=== PATIENT | male | born 1960 | race Caucasian/White ===

== ENCOUNTER 2017-10-25 03:35 | Inpatient (IN) ==
[2017-10-25 04:36] LABS: Basophils % 0.6 % (0.0-0.8); Eosinophils # 0.1 10*3/uL (0.0-0.87); Eosinophils % 1.1 % (0.00-10.9); Hematocrit 45.4 VOL% (42.0-52.0); Immature Granulocytes % 0.3 %; Immature Granulocytes Absolute 0.02 #; Lymphocytes # 1.6 10*3/uL (1.4-4.0); Lymphocytes % 26.3 % (21.2-54.2); Mean Corpuscular Hemoglobin 28 PG (27-34); Mean Corpuscular Volume 85.8 FL (87-102); Mean Platelet Volume 10.3 FL (9.6-12.0); Monocytes # 0.4 10*3/uL (0.11-0.8); Monocytes % 5.7 % (1.7-12.7); Neutrophils # 4.1 10*3/uL (1.4-7.4); Platelet Count 299 T/CUMM (130-400); Red Blood Count 5.29 MC/CUMM (3.8-5.5); Red Cell Distribution Width 14.2 % (9.3-17.3); White Blood Count 6.2 T/CUMM (4-12)
[2017-10-25] MEDS ORDERED: MAGNESIUM SULF RIDER 2 GM in PREMIX 1 EACH IV PRN ×3 (04:58→08:47)
[2017-10-25] MEDS ORDERED: MAGNESIUM SULF RIDER 4 GM in PREMIX 1 EACH IV PRN (04:58)
[2017-10-25 05:03] LABS: Alanine Aminotransferase 24 U/L (16-61); Albumin 3.9 G/DL (3.4-5.0); Alkaline Phosphatase 135 U/L (45-117); Aspartate Amino Transferase 35 U/L (0-37); Bilirubin,Total < 0.39 MG/DL (0.2-1.0); Blood Urea Nitrogen 23 MG/DL (7-18); Calcium 9.8 MG/DL (8.5-10.1); Glucose 96 MG/DL (74-106); Osmolality,Calculated 278.7 MOS/KG (273-304); Potassium 4.3 MMOL/L (3.5-5.1); Sodium 138 MMOL/L (136-145); Total Protein 8.4 G/DL (6.4-8.3)
[2017-10-25] MEDS ORDERED: ASPIRIN 325 MG TABLET PO STA (05:15)
[2017-10-25] MEDS ORDERED: ENOXAPARIN 100 MG/ML SYRINGE SUBCUT ONE (07:59)
[2017-10-25] MEDS ORDERED: NICOTINE 21 MG/24 HR PATCH TRANSDERM PRN (08:12)
[2017-10-25] MEDS ORDERED: MORPHINE 2 MG/1 ML SYRINGE IV PRN (08:12)
[2017-10-25] MEDS ORDERED: DOCUSATE SODIUM 100 MG CAPSULE PO PRN (08:12)
[2017-10-25] MEDS ORDERED: BISACODYL 5 MG TABLET PO PRN (08:12)
[2017-10-25] MEDS ORDERED: POTASSIUM CHLORIDE RIDER 10 MEQ in PREMIX 1 EACH IV PRN ×3 (08:12→08:47)
[2017-10-25] MEDS ORDERED: ONDANSETRON 4 MG/2 ML VIAL IV PRN (08:12)
[2017-10-25] MEDS ORDERED: ACETAMINOPHEN 325 MG TABLET PO PRN (08:12)
[2017-10-25] MEDS ORDERED: ZALEPLON 5 MG CAPSULE PO PRN (08:12)
[2017-10-25] MEDS ORDERED: NITROGLYCERIN 2% OINT 1 INCH/GM PACK TOP STA (08:25)
[2017-10-25] MEDS ORDERED: diphenhydrAMINE CAP 25 MG CAPSULE PO ONE (08:27)
[2017-10-25] MEDS ORDERED: DIAZEPAM 5 MG TABLET PO ONE (08:27)
[2017-10-25 08:28] LABS: Risk Ratio 9.54; VLDL CHOLESTEROL 16.6 MG/DL
[2017-10-25] MEDS ORDERED: NITROGLYCERIN 2% OINT 1 INCH/GM PACK TOP ONE (08:29)
[2017-10-25] MEDS ORDERED: MIDAZOLAM 2 MG/2 ML VIAL ONE (08:40)
[2017-10-25] MEDS ORDERED: HYDROmorphone 2 MG/1 ML VIAL ONE (08:40)
[2017-10-25] MEDS ORDERED: NITROGLYCERIN DRIP 50 MG/250 ML BOTTLE IV ONE (08:40)
[2017-10-25] MEDS ORDERED: LIDOCAINE 1% 20 ML VIAL ONE (08:40)
[2017-10-25] MEDS ORDERED: VERAPAMIL 5 MG/2 ML VIAL ONE (08:40)
[2017-10-25] MEDS ORDERED: ROSUVASTATIN 20 MG TABLET PO SCH (09:00)
[2017-10-25] MEDS ORDERED: TICAGRELOR 90 MG TABLET ONE (09:22)
[2017-10-25] MEDS ORDERED: ASPIRIN 325 MG TABLET ONE (09:22)
[2017-10-25] MEDS ORDERED: ENOXAPARIN 30 MG/0.3 ML SYRINGE ONE (10:08)
[2017-10-25] MEDS ORDERED: EPTIFIBATIDE 20,000 MCG/10 ML VIAL ONE (10:12)
[2017-10-25] MEDS ORDERED: TIROFIBAN 5,000 MCG/100 ML PREMIX IV ONE (10:12)
[2017-10-25] MEDS ORDERED: NITROGLYCERIN SL 0.4 MG TABLET SL PRN (10:31)
[2017-10-25 12:09] LABS: CKMB % 7.5 %
[2017-10-25 12:11] LABS: Troponin I Only 4.31 NG/ML (0.00-0.045)
[2017-10-25] MEDS ORDERED: NITROGLYCERIN DRIP 50 MG/250 ML BOTTLE IV SCH (14:30)
[2017-10-25] MEDS: PANTOPRAZOLE 40 MG TABLET PO SCH (15:49)
[2017-10-25] MEDS: CARVEDILOL 3.125 MG TABLET PO SCH ×2 (15:50→21:36)
[2017-10-25] MEDS: SODIUM CHLORIDE 0.9% 1,000 ML IV SCH (15:50)
[2017-10-25] MEDS ORDERED: diphenhydrAMINE CAP 25 MG CAPSULE PO PRN (18:14)
[2017-10-25] MEDS ORDERED: MAGNESIUM HYDROXIDE SUSP 30 ML UDCUP PO PRN (18:15)
[2017-10-25] MEDS ORDERED: SIMETHICONE CHEW 80 MG TABLET PO PRN (18:15)
[2017-10-25] MEDS: TICAGRELOR 90 MG TABLET PO SCH (21:36)
[2017-10-25] MEDS: ROSUVASTATIN 20 MG TABLET PO SCH (21:36)
[2017-10-26] MEDS: SODIUM CHLORIDE 0.9% 1,000 ML IV SCH ×2 (00:30→08:43)
[2017-10-26 05:41] LABS: Basophils % 0.4 % (0.0-0.8); Eosinophils # 0.2 10*3/uL (0.0-0.87); Hematocrit 39.6 VOL% (42.0-52.0); Immature Granulocytes % 0.5 %; Immature Granulocytes Absolute 0.04 #; Lymphocytes # 2.4 10*3/uL (1.4-4.0); Lymphocytes % 28.7 % (21.2-54.2); Mean Corpuscular HGB Conc 32.6 GM/DL (32-36); Mean Corpuscular Hemoglobin 28 PG (27-34); Mean Corpuscular Volume 86.7 FL (87-102); Mean Platelet Volume 10.7 FL (9.6-12.0); Monocytes # 0.6 10*3/uL (0.11-0.8); Monocytes % 7.6 % (1.7-12.7); Neutrophils # 5.1 10*3/uL (1.4-7.4); Neutrophils % 60.8 % (38.7-73.9); Platelet Count 262 T/CUMM (130-400); Red Blood Count 4.57 MC/CUMM (3.8-5.5); Red Cell Distribution Width 14.4 % (9.3-17.3)
[2017-10-26 05:58] LABS: White Blood Count 8.4 T/CUMM (4-12)
[2017-10-26 05:59] LABS: Hemoglobin 12.9 GM/DL (14.0-18.0)
[2017-10-26 06:10] LABS: Calcium 8.2 MG/DL (8.5-10.1); Magnesium 2.2 MG/DL (1.8-2.4); Osmolality,Calculated 276.7 MOS/KG (273-304); Potassium 4.4 MMOL/L (3.5-5.1)
[2017-10-26 06:15] LABS: CKMB % 5.5 %
[2017-10-26 06:17] LABS: Troponin I Only 4.74 NG/ML (0.00-0.045)
[2017-10-26 06:20] LABS: Calcium 8.2 MG/DL (8.5-10.1); Magnesium 2.3 MG/DL (1.8-2.4); Osmolality,Calculated 279.5 MOS/KG (273-304); Potassium 4.4 MMOL/L (3.5-5.1); Thyroid Stimulating Hormone 2.29 uIU/ml (0.358-3.74)
[2017-10-26] MEDS: TICAGRELOR 90 MG TABLET PO SCH ×2 (08:49→20:03)
[2017-10-26] MEDS: ASPIRIN EC 81 MG TABLET PO SCH (08:49)
[2017-10-26] MEDS: CARVEDILOL 3.125 MG TABLET PO SCH ×2 (08:49→20:03)
[2017-10-26] MEDS: PANTOPRAZOLE 40 MG TABLET PO SCH (08:50)
[2017-10-26] MEDS ORDERED: LISINOPRIL 2.5 MG TABLET PO SCH ×2 (09:00→10:00)
[2017-10-26] MEDS ORDERED: LISINOPRIL 2.5 MG TABLET PO ONE (10:15)
[2017-10-26] MEDS: ROSUVASTATIN 20 MG TABLET PO SCH (20:03)
[2017-10-26] MEDS ORDERED: ENOXAPARIN 40 MG/0.4 ML SYRINGE SUBCUT SCH (21:00)
[2017-10-27] MEDS ORDERED: LISINOPRIL 10 MG TABLET PO SCH (09:00)
[2017-10-27] MEDS ORDERED: NICOTINE 14 MG/24 HR PATCH TRANSDERM SCH (09:00)
[2017-10-27] MEDS ORDERED: LISINOPRIL 5 MG TABLET PO SCH (09:00)
[2017-10-27] MEDS: ASPIRIN EC 81 MG TABLET PO SCH (09:08)
[2017-10-27] MEDS: CARVEDILOL 3.125 MG TABLET PO SCH (09:08)
[2017-10-27] MEDS: PANTOPRAZOLE 40 MG TABLET PO SCH (09:08)
[2017-10-27] MEDS: TICAGRELOR 90 MG TABLET PO SCH (09:08)
[2017-10-27 09:43] VITALS: BP 158/102
[2017-10-27] MEDS ORDERED: CLOPIDOGREL 300 MG TABLET PO ONE (09:58)
== END 2017-10-27 11:11 | disposition home or self-care (01) | DRG 247 ==
LOC: EDBD → EDSEX → EDUNIT# → N.ED 03:35 → N.CC 08:38 → N.CL 08:39 → N.CC 09:59
PROVIDERS: ADMIT Internal Medicine Cardiovascular Disease; ATTEND Internal Medicine Cardiovascular Disease
PROC: CLCCHCL (ICD-10-PCS; 2017-10-25 09:15)

== ENCOUNTER 2018-10-08 12:30 | Inpatient (IN) ==
[2018-10-08 13:24] LABS: Basophils # 0.1 10*3/uL (0.0-0.2); Eosinophils % 0.2 % (0.00-10.9); Immature Granulocytes % 4.4 %; Immature Granulocytes Absolute 0.37 #; Lymphocytes # 3.6 10*3/uL (1.4-4.0); Lymphocytes % 42.3 % (21.2-54.2); Mean Corpuscular HGB Conc 33.8 GM/DL (32-36); Mean Corpuscular Hemoglobin 33 PG (27-34); Mean Corpuscular Volume 96.3 FL (87-102); Mean Platelet Volume 12.2 FL (9.6-12.0); Monocytes # 2.6 10*3/uL (0.11-0.8); Monocytes % 30.6 % (1.7-12.7); NRBC # 1.34 10*3/uL; Neutrophils # 1.8 10*3/uL (1.4-7.4); Neutrophils % 21.5 % (38.7-73.9); Platelet Count 142 T/CUMM (130-400); Red Blood Count 1.63 MC/CUMM (3.8-5.5); Red Cell Distribution Width 15.8 % (9.3-17.3); White Blood Count 8.4 T/CUMM (4-12)
[2018-10-08 13:33] LABS: PT Patient Result 10.9 SECS
[2018-10-08 13:36] LABS: Hematocrit 15.7 VOL% (42.0-52.0); Hemoglobin 5.3 GM/DL (14.0-18.0)
[2018-10-08] MEDS ORDERED: SODIUM CHLORIDE 0.9% 1,000 ML IV PRN (13:37)
[2018-10-08 13:46] LABS: Albumin 3.5 G/DL (3.4-5.0); Calcium 8.3 MG/DL (8.5-10.1); Osmolality,Calculated 282.4 MOS/KG (273-304); Potassium 3.6 MMOL/L (3.5-5.1); Total Protein 7.5 G/DL (6.4-8.3)
[2018-10-08 14:02] LABS: % Iron Saturation 90.2 % (18-50)
[2018-10-08 14:16] LABS: Eosinophils 2 % (0-10); Lymphocytes 50 % (20-55); Nucleated Red Blood Cells 31 (0-5); Segmented Neutrophils 32 % (50-85); Total Cells Counted 100
[2018-10-08 14:20] LABS: Anisocytosis 1+; Giant Platelets 1+; Platelet Estimate Adequate; Polychromasia 1+
[2018-10-08 14:21] LABS: Microcytosis 1+; Tear Drop Cells Few
[2018-10-08 14:22] LABS: Macrocytosis 1+
[2018-10-08 14:24] LABS: Hypochromasia 2+; Schistocytes Few
[2018-10-08 14:25] LABS: Atypical Lymphocytes Few
[2018-10-08] MEDS ORDERED: ONDANSETRON 4 MG/2 ML VIAL IV PRN (14:35)
[2018-10-08] MEDS ORDERED: NICOTINE 21 MG/24 HR PATCH TRANSDERM PRN (14:35)
[2018-10-08] MEDS ORDERED: INFLUENZA VIRUS VACCINE 0.5 ML SYRINGE IM ONE (16:43)
[2018-10-08] MEDS: LISINOPRIL 10 MG TABLET PO SCH (17:58)
[2018-10-08] MEDS: CARVEDILOL 6.25 MG TABLET PO SCH (20:54)
[2018-10-08] MEDS: PANTOPRAZOLE 40 MG TABLET PO SCH (20:54)
[2018-10-08] MEDS: SODIUM CHLORIDE 0.9% 1,000 ML IV SCH (20:57)
[2018-10-09] MEDS: SODIUM CHLORIDE 0.9% 1,000 ML IV SCH ×4 (07:00→22:45)
[2018-10-09 07:36] LABS: Basophils % 0.4 % (0.0-0.8); Hematocrit 21.4 VOL% (42.0-52.0); Immature Granulocytes % 4.6 %; Immature Granulocytes Absolute 0.32 #; Lymphocytes # 3.1 10*3/uL (1.4-4.0); Lymphocytes % 44.6 % (21.2-54.2); Mean Corpuscular HGB Conc 33.2 GM/DL (32-36); Mean Corpuscular Hemoglobin 30 PG (27-34); Mean Corpuscular Volume 91.5 FL (87-102); Monocytes # 2.2 10*3/uL (0.11-0.8); Monocytes % 31.1 % (1.7-12.7); NRBC # 1.13 10*3/uL; Neutrophils # 1.4 10*3/uL (1.4-7.4); Neutrophils % 19.3 % (38.7-73.9); Platelet Count 115 T/CUMM (130-400); Red Cell Distribution Width 16.2 % (9.3-17.3)
[2018-10-09 07:46] LABS: Hemoglobin 7.1 GM/DL (14.0-18.0); Red Blood Count 2.34 MC/CUMM (3.8-5.5)
[2018-10-09 08:02] LABS: Calcium 8.4 MG/DL (8.5-10.1); Osmolality,Calculated 280.5 MOS/KG (273-304); Potassium 4.5 MMOL/L (3.5-5.1)
[2018-10-09 08:08] LABS: Anisocytosis 2+; Band Neutrophils 4 % (0-10); Lymphocytes 63 % (20-55); Metamyelocytes 1 %; Nucleated Red Blood Cells 25 (0-5); Platelet Estimate Adequate; Polychromasia Slight; Segmented Neutrophils 20 % (50-85); Smudge Cells Few; Total Cells Counted 100
[2018-10-09] MEDS ORDERED: SODIUM CHLORIDE 0.9% 1,000 ML IV PRN (09:21)
[2018-10-09] MEDS: CARVEDILOL 6.25 MG TABLET PO SCH ×2 (10:56→20:32)
[2018-10-09] MEDS: PANTOPRAZOLE 40 MG TABLET PO SCH (10:56)
[2018-10-09] MEDS: LISINOPRIL 10 MG TABLET PO SCH (10:56)
[2018-10-09 11:06] LABS: Folate > 24.0 NG/ML (5.4-24.0); Vitamin B12 1462 PG/ML (211-911)
[2018-10-09 11:53] LABS: Ferritin 389.4 ng/ml (26-388)
[2018-10-09 12:47] LABS: Immunoglobulin A 386 MG/DL (70-400); Immunoglobulin G 1520 MG/DL (700-1600); Immunoglobulin M 100 MG/DL (40-230)
[2018-10-09 13:14] LABS: Haptoglobin < 8.0 MG/DL (30-200)
[2018-10-09 19:39] LABS: Hematocrit 26.3 VOL% (42.0-52.0)
[2018-10-09 19:41] LABS: Hemoglobin 8.8 GM/DL (14.0-18.0)
[2018-10-09 19:45] LABS: Apearance,Urine CLEAR (Clear); Bilirubin,Urine Negative (Negative); Blood, Urine Negative (Negative); Glucose,Urine (UA) Negative (Negative); Ketones,Urine Negative (Negative); Mucus,Urine Occasional /LPF (Occasional); Nitrite,Urine Negative (Negative); Protein,Urine Negative; Urine Color Yellow (Yellow); Urine Specific Gravity 1.015 (1.001-1.035); Urine Urobilinogen < 2.0 EU/DL (0.2-1.0); WBC,Urine 1 /HPF (0-6)
[2018-10-09] MEDS: ACETAMINOPHEN 325 MG TABLET PO PRN (22:48)
[2018-10-10] MEDS: SODIUM CHLORIDE 0.9% 1,000 ML IV SCH ×2 (06:50→17:14)
[2018-10-10 06:55] LABS: Basophils % 0.3 % (0.0-0.8); Eosinophils % 0.1 % (0.00-10.9); Hematocrit 24.6 VOL% (42.0-52.0); Hemoglobin 8.2 GM/DL (14.0-18.0); Immature Granulocytes % 4.6 %; Immature Granulocytes Absolute 0.31 #; Lymphocytes # 3.3 10*3/uL (1.4-4.0); Lymphocytes % 48.5 % (21.2-54.2); Mean Corpuscular HGB Conc 33.3 GM/DL (32-36); Mean Corpuscular Hemoglobin 30 PG (27-34); Mean Corpuscular Volume 89.1 FL (87-102); Monocytes # 1.8 10*3/uL (0.11-0.8); Monocytes % 26.9 % (1.7-12.7); NRBC # 0.77 10*3/uL; Neutrophils # 1.3 10*3/uL (1.4-7.4); Neutrophils % 19.6 % (38.7-73.9); Platelet Count 111 T/CUMM (130-400); Red Blood Count 2.76 MC/CUMM (3.8-5.5); Red Cell Distribution Width 17.2 % (9.3-17.3); White Blood Count 6.8 T/CUMM (4-12)
[2018-10-10 07:10] LABS: Calcium 8.1 MG/DL (8.5-10.1); Osmolality,Calculated 280.4 MOS/KG (273-304); Potassium 4.1 MMOL/L (3.5-5.1)
[2018-10-10 07:16] LABS: Band Neutrophils 1 % (0-10); Hypochromasia 1+; Lymphocytes 59 % (20-55); Nucleated Red Blood Cells 6 (0-5); Ovalocytes Slight; Platelet Estimate Decreased; Segmented Neutrophils 20 % (50-85); Total Cells Counted 100
[2018-10-10 07:18] LABS: Atypical Lymphocytes Few; Microcytosis Slight
[2018-10-10 08:05] LABS: Total Protein (Chem) 7.5 G/DL (6.4-8.3)
[2018-10-10 08:05] LABS: Immunoglobulin A (Chem) 386 MG/DL (70-400); Immunoglobulin G (Chem) 1520 MG/DL (700-1600); Immunoglobulin M (Chem) 100 MG/DL (40-230)
[2018-10-10] MEDS: PANTOPRAZOLE 40 MG TABLET PO SCH (09:30)
[2018-10-10] MEDS: FOLIC ACID 0.4 MG TABLET PO SCH (09:30)
[2018-10-10] MEDS: CARVEDILOL 6.25 MG TABLET PO SCH ×2 (09:30→20:34)
[2018-10-10] MEDS: LISINOPRIL 10 MG TABLET PO SCH (09:30)
[2018-10-10] MEDS ORDERED: PROPOFOL 200 MG/20 ML VIAL IV ONE (10:00)
[2018-10-10] MEDS ORDERED: LIDOCAINE 2% 5 ML VIAL ONE (10:00)
[2018-10-10 10:28] LABS: Albumin (SPE) 4.1 G/DL (3.2-5.3); Albumin (SPE) Rel % 55.9 %; Alpha 1 (SPE) 0.3 G/DL (0.1-0.4); Alpha 1 (SPE) Rel % 3.3 %; Alpha 2 (SPE) 0.5 G/DL (0.4-1.0); Alpha 2 (SPE) Rel % 6.3 %; Beta (SPE) 0.9 G/DL (0.5-1.1); Beta (SPE) Rel % 12.1 %; Gamma (SPE) 1.7 G/DL (0.7-1.7); Gamma (SPE) Rel % 22.4 %
[2018-10-10] MEDS: predniSONE 20 MG TABLET PO SCH (10:30)
[2018-10-10] MEDS: amLODIPine 2.5 MG TABLET PO SCH (17:14)
[2018-10-10] MEDS: ACETAMINOPHEN 325 MG TABLET PO PRN (20:36)
[2018-10-10] MEDS ORDERED: ROSUVASTATIN 20 MG TABLET PO SCH (21:00)
[2018-10-11 04:36] LABS: Basophils % 0.4 % (0.0-0.8); Eosinophils # 0.1 10*3/uL (0.0-0.87); Eosinophils % 0.9 % (0.00-10.9); Hematocrit 23.3 VOL% (42.0-52.0); Hemoglobin 7.8 GM/DL (14.0-18.0); Immature Granulocytes % 4.6 %; Immature Granulocytes Absolute 0.26 #; Lymphocytes % 53.4 % (21.2-54.2); Mean Corpuscular HGB Conc 33.5 GM/DL (32-36); Mean Corpuscular Hemoglobin 30 PG (27-34); Mean Platelet Volume 12.3 FL (9.6-12.0); Monocytes # 1.3 10*3/uL (0.11-0.8); Monocytes % 22.1 % (1.7-12.7); NRBC # 0.45 10*3/uL; Neutrophils # 1.1 10*3/uL (1.4-7.4); Neutrophils % 18.6 % (38.7-73.9); Red Blood Count 2.59 MC/CUMM (3.8-5.5); Red Cell Distribution Width 16.6 % (9.3-17.3); White Blood Count 5.7 T/CUMM (4-12)
[2018-10-11 04:46] LABS: Platelet Count 95 T/CUMM (130-400)
[2018-10-11 04:55] LABS: Calcium 7.9 MG/DL (8.5-10.1); Osmolality,Calculated 284.3 MOS/KG (273-304); Potassium 3.8 MMOL/L (3.5-5.1)
[2018-10-11 05:13] LABS: Atypical Lymphocytes Few; Band Neutrophils 3 % (0-10); Hypochromasia 1+; Lymphocytes 51 % (20-55); Microcytosis Slight; Myelocytes 1 %; Nucleated Red Blood Cells 6 (0-5); Platelet Estimate Decreased; Segmented Neutrophils 28 % (50-85); Total Cells Counted 100
[2018-10-11] MEDS: SODIUM CHLORIDE 0.9% 1,000 ML IV SCH ×2 (06:35→08:45)
[2018-10-11] MEDS: LISINOPRIL 10 MG TABLET PO SCH (08:44)
[2018-10-11] MEDS: predniSONE 20 MG TABLET PO SCH (08:45)
[2018-10-11] MEDS: amLODIPine 2.5 MG TABLET PO SCH (08:45)
[2018-10-11] MEDS: CARVEDILOL 6.25 MG TABLET PO SCH (08:45)
[2018-10-11] MEDS: FOLIC ACID 0.4 MG TABLET PO SCH (08:45)
[2018-10-11] MEDS: PANTOPRAZOLE 40 MG TABLET PO SCH (08:45)
[2018-10-11 11:58] VITALS: BP 135/73
== END 2018-10-11 13:19 | disposition home or self-care (01) | DRG 810 ==
LOC: N.ED 12:30 → N.EDINP 12:30 → SUATTDRO 14:35 → N.5E 15:19
PROVIDERS: ADMIT Family Medicine; ATTEND Hospitalist

== ENCOUNTER 2019-05-02 08:22 | Inpatient (IN) ==
[2019-05-02] MEDS ORDERED: MEROPENEM 1,000 MG in SODIUM CHLORIDE 0.9% 100 ML IV STA (09:10)
[2019-05-02] MEDS ORDERED: SODIUM CHLORIDE 0.9% 2,000 ML IV STA (09:10)
[2019-05-02] MEDS ORDERED: ACETAMINOPHEN 500 MG TABLET PO STA (09:10)
[2019-05-02] MEDS ORDERED: ALBUTEROL/IPRATROPIUM 3 ML NEB RESP TX STA (09:27)
[2019-05-02] MEDS ORDERED: KETOROLAC 30 MG/1 ML VIAL IV STA (09:27)
[2019-05-02 09:37] LABS: Alanine Aminotransferase 25 U/L (16-61); Albumin 3.2 G/DL (3.4-5.0); Alkaline Phosphatase 164 U/L (45-117); Amylase 39 U/L (25-115); Aspartate Amino Transferase 18 U/L (0-37); Blood Urea Nitrogen 18 MG/DL (7-18); Calcium 9.1 MG/DL (8.5-10.1); Glucose 97 MG/DL (74-106); Osmolality,Calculated 267.4 MOS/KG (273-304); Total Protein 7.9 G/DL (6.4-8.3); Troponin I < 0.015 NG/ML (0.00-0.045)
[2019-05-02 09:41] LABS: PT Patient Result 10.7 SECS (9.6-12.2)
[2019-05-02 10:04] LABS: Hematocrit 21.3 VOL% (42.0-52.0); Hemoglobin 7.1 GM/DL (14.0-18.0); Lymphocytes # 0.1 10*3/uL (1.4-4.0); Mean Corpuscular HGB Conc 33.3 GM/DL (32-36); Mean Corpuscular Volume 94.7 FL (87-102); Mean Platelet Volume 10.7 FL (9.6-12.0); Red Blood Count 2.25 MC/CUMM (3.8-5.5); Red Cell Distribution Width 14.3 % (9.3-17.3)
[2019-05-02 10:09] LABS: Platelet Count 11 T/CUMM (130-400); White Blood Count 0.1 T/CUMM (4-12)
[2019-05-02 10:25] LABS: Atypical Lymphocytes Few; Hypochromasia 1+; Lymphocytes 80 % (20-55); Microcytosis Slight; Platelet Estimate Decreased; Total Cells Counted 100
[2019-05-02 11:14] LABS: Sedimentation Rate-Westergren 120 MM/HR (0-20)
[2019-05-02] MEDS ORDERED: PROMETHAZINE 25 MG/1 ML VIAL IM PRN (12:36)
[2019-05-02] MEDS ORDERED: FILGRASTIM-SNDZ 300 MCG/0.5 ML SYRINGE SUBCUT ONE (12:43)
[2019-05-02] MEDS ORDERED: SODIUM CHLORIDE 0.9% 1,000 ML IV PRN (12:44)
[2019-05-02] MEDS ORDERED: VANCOMYCIN INJ 1,250 MG in SODIUM CHLORIDE 0.9% 250 ML IV SCH (13:00)
[2019-05-02] MEDS: PIPERACILLIN/TAZOBACTAM 3,375 MG in SODIUM CHLORIDE 0.9% 100 ML IV SCH ×2 (13:21→20:39)
[2019-05-02] MEDS: SODIUM CHLORIDE 0.9% 1,000 ML IV SCH (13:21)
[2019-05-02] MEDS ORDERED: VANCOMYCIN INJ 1,750 MG in SODIUM CHLORIDE 0.9% 500 ML IV ONE (14:00)
[2019-05-02] MEDS: ONDANSETRON 4 MG/2 ML VIAL IV PRN (14:30)
[2019-05-02] MEDS: ACETAMINOPHEN 325 MG TABLET PO PRN (18:12)
[2019-05-02] MEDS: DOCUSATE SODIUM 100 MG CAPSULE PO SCH (20:48)
[2019-05-02] MEDS ORDERED: METHOCARBAMOL 500 MG TABLET PO PRN (21:07)
[2019-05-02] MEDS: oxyCODONE/ACETAMINOPHEN 5-325 MG TABLET PO PRN (21:49)
[2019-05-03] MEDS: VANCOMYCIN INJ 1,500 MG in SODIUM CHLORIDE 0.9% 500 ML IV SCH ×2 (03:26→15:13)
[2019-05-03] MEDS: ALBUTEROL/IPRATROPIUM 3 ML NEB RESP TX SCH ×6 (04:55→22:46)
[2019-05-03] MEDS: oxyCODONE/ACETAMINOPHEN 5-325 MG TABLET PO PRN ×2 (05:22→18:19)
[2019-05-03] MEDS: PIPERACILLIN/TAZOBACTAM 3,375 MG in SODIUM CHLORIDE 0.9% 100 ML IV SCH (05:31)
[2019-05-03 06:10] LABS: Hematocrit 23.8 VOL% (42.0-52.0); Lymphocytes # 0.1 10*3/uL (1.4-4.0); Mean Corpuscular HGB Conc 33.6 GM/DL (32-36); Mean Platelet Volume 11.3 FL (9.6-12.0); Red Blood Count 2.56 MC/CUMM (3.8-5.5); Red Cell Distribution Width 14.8 % (9.3-17.3)
[2019-05-03 06:19] LABS: White Blood Count 0.1 T/CUMM (4-12)
[2019-05-03 06:20] LABS: Platelet Count 30 T/CUMM (130-400)
[2019-05-03 06:41] LABS: Hypochromasia 1+; Lymphocytes 67 % (20-55); Microcytosis 1+; Platelet Estimate Decreased; Total Cells Counted 100
[2019-05-03 07:07] LABS: Albumin 2.5 G/DL (3.4-5.0); Bilirubin,Total 3.1 MG/DL (0.2-1.0); Calcium 8.2 MG/DL (8.5-10.1); Risk Ratio 5.68; Total Protein 6.7 G/DL (6.4-8.3); VLDL CHOLESTEROL 18.8 MG/DL
[2019-05-03] MEDS ORDERED: BUTALBITAL/ACETAMIN/CAFFEINE 50-325-40 MG TABLET PO PRN (08:45)
[2019-05-03] MEDS ORDERED: cefTRIAXone 1,000 MG in SODIUM CHLORIDE 0.9% 100 ML IV SCH (09:00)
[2019-05-03] MEDS ORDERED: cefTRIAXone 1,000 MG VIAL IM SCH (09:00)
[2019-05-03] MEDS ORDERED: METHOCARBAMOL 500 MG TABLET PO PRN (09:01)
[2019-05-03] MEDS ORDERED: PANTOPRAZOLE 40 MG TABLET PO SCH ×2 (10:00→10:07)
[2019-05-03] MEDS: DOCUSATE SODIUM 100 MG CAPSULE PO SCH ×2 (10:05→23:27)
[2019-05-03] MEDS ORDERED: GABAPENTIN 100 MG CAPSULE PO SCH ×2 (10:07→21:00)
[2019-05-03] MEDS ORDERED: FOLIC ACID 0.4 MG TABLET PO SCH (10:07)
[2019-05-03] MEDS: fentaNYL 12 MCG/HR PATCH TRANSDERM SCH (10:44)
[2019-05-03] MEDS: ACYCLOVIR 200 MG CAPSULE PO SCH ×4 (10:44→20:47)
[2019-05-03] MEDS: FOLIC ACID 0.4 MG TABLET PO SCH (10:44)
[2019-05-03] MEDS: GABAPENTIN 100 MG CAPSULE PO SCH ×2 (10:44→20:47)
[2019-05-03] MEDS: MEROPENEM 1,000 MG in SODIUM CHLORIDE 0.9% 100 ML IV SCH ×2 (10:45→18:19)
[2019-05-03] MEDS: HYDROmorphone 2 MG/1 ML VIAL IV PRN ×2 (15:13→20:43)
[2019-05-03] MEDS: CARVEDILOL 6.25 MG TABLET PO SCH (20:47)
[2019-05-03] MEDS: SODIUM CHLORIDE 0.9% 1,000 ML IV SCH (23:20)
[2019-05-04] MEDS: HYDROmorphone 2 MG/1 ML VIAL IV PRN ×6 (01:22→22:03)
[2019-05-04] MEDS: MEROPENEM 1,000 MG in SODIUM CHLORIDE 0.9% 100 ML IV SCH ×3 (01:25→17:42)
[2019-05-04 02:20] LABS: Amorphous Crystals,Urine Occasional /HPF (Few); Apearance,Urine CLOUDY (Clear); Bilirubin,Urine Negative (Negative); Blood, Urine Negative (Negative); Glucose,Urine (UA) Negative (Negative); Hyaline Casts,Urine 4 /LPF (0-3); Ketones,Urine Negative (Negative); Mucus,Urine Occasional /LPF (Occasional); Nitrite,Urine Negative (Negative); Protein,Urine 30 MG/DL; RBC,Urine 4 /HPF (0-4); Red Blood Cell Casts,Urine 20 /LPF (<1); Renal Epithelial Cells,Urine Occasional /HPF (<1); Squamous Epithelial Cell,Urine Occasional /HPF (0-10); Urine Color Amber (Yellow); Urine Specific Gravity 1.024 (1.001-1.035); Urine Urobilinogen < 2.0 EU/DL (0.2-1.0)
[2019-05-04] MEDS: ALBUTEROL/IPRATROPIUM 3 ML NEB RESP TX SCH (02:39)
[2019-05-04] MEDS ORDERED: metroNIDAZOLE INJ 500 MG in PREMIX 1 EACH IV SCH (05:00)
[2019-05-04] MEDS: ACETAMINOPHEN 325 MG TABLET PO PRN (05:28)
[2019-05-04 06:38] LABS: Eosinophils % 3.8 % (0.00-10.9); Hematocrit 22.2 VOL% (42.0-52.0); Hemoglobin 7.4 GM/DL (14.0-18.0); Immature Granulocytes % 3.8 %; Immature Granulocytes Absolute 0.01 #; Lymphocytes # 0.1 10*3/uL (1.4-4.0); Lymphocytes % 42.3 % (21.2-54.2); Mean Corpuscular HGB Conc 33.3 GM/DL (32-36); Mean Corpuscular Volume 94.1 FL (87-102); Mean Platelet Volume 10.4 FL (9.6-12.0); Monocytes % 23.1 % (1.7-12.7); Red Blood Count 2.36 MC/CUMM (3.8-5.5); Red Cell Distribution Width 15.3 % (9.3-17.3)
[2019-05-04 06:41] LABS: Bilirubin,Direct 0.58 MG/DL (0.0-0.20); Bilirubin,Indirect 0.5 MG/DL (0.0-1.0); Bilirubin,Total 1.1 MG/DL (0.2-1.0)
[2019-05-04 06:44] LABS: Platelet Count 22 T/CUMM (130-400); White Blood Count 0.3 T/CUMM (4-12)
[2019-05-04 07:15] LABS: Anisocytosis 1+; Band Neutrophils 10 % (0-10); Lymphocytes 50 % (20-55); Platelet Estimate Decreased; Segmented Neutrophils 20 % (50-85); Total Cells Counted 100
[2019-05-04 07:17] LABS: Albumin 2.3 G/DL (3.4-5.0); Calcium 8.5 MG/DL (8.5-10.1); Osmolality,Calculated 271.1 MOS/KG (273-304); Total Protein 6.8 G/DL (6.4-8.3)
[2019-05-04] MEDS: ALBUTEROL/IPRATROPIUM 3 ML NEB RESP TX PRN ×2 (07:28→11:15)
[2019-05-04] MEDS ORDERED: SODIUM CHLORIDE 0.9% 1,000 ML IV PRN (07:37)
[2019-05-04 07:50] LABS: Hepatitis B Core IgM Quant 0.18 Index; Hepatitis B Surface Ag Quant < 0.10 Index; Hepatitis B Surface Ag Result Negative (Negative); Hepatitis C Virus Ab Quant < 0.02 Index; Hepatitis C Virus Ab Result Negative (Negative)
[2019-05-04] MEDS ORDERED: PANTOPRAZOLE 40 MG TABLET PO SCH (09:00)
[2019-05-04] MEDS ORDERED: FOLIC ACID 0.4 MG TABLET PO SCH (09:00)
[2019-05-04] MEDS: DOCUSATE SODIUM 100 MG CAPSULE PO SCH ×2 (09:30→22:01)
[2019-05-04] MEDS: GABAPENTIN 100 MG CAPSULE PO SCH ×2 (09:32→20:42)
[2019-05-04] MEDS: FOLIC ACID 0.4 MG TABLET PO SCH (09:32)
[2019-05-04] MEDS: CARVEDILOL 6.25 MG TABLET PO SCH ×2 (09:32→20:42)
[2019-05-04] MEDS: ACYCLOVIR 200 MG CAPSULE PO SCH ×4 (09:32→20:42)
[2019-05-04] MEDS: SODIUM CHLORIDE 0.9% 1,000 ML IV SCH (09:40)
[2019-05-04] MEDS: VANCOMYCIN 50 MG/ML 60 ML/BOTTLE PO SCH ×3 (12:02→23:47)
[2019-05-04] MEDS: VANCOMYCIN INJ 1,500 MG in SODIUM CHLORIDE 0.9% 500 ML IV SCH (12:03)
[2019-05-04] MEDS ORDERED: POTASSIUM CHLORIDE 20 MEQ TABLET PO ONE (13:05)
[2019-05-04] MEDS ORDERED: MAGNESIUM SULF RIDER 2 GM in PREMIX 1 EACH IV ONE (13:06)
[2019-05-04] MEDS ORDERED: FUROSEMIDE 20 MG/2 ML VIAL IV ONE (15:41)
[2019-05-04] MEDS: oxyCODONE/ACETAMINOPHEN 5-325 MG TABLET PO PRN (20:42)
[2019-05-05] MEDS: MEROPENEM 1,000 MG in SODIUM CHLORIDE 0.9% 100 ML IV SCH ×3 (00:09→21:26)
[2019-05-05] MEDS: SODIUM CHLORIDE 0.9% 1,000 ML IV SCH ×2 (02:49→22:55)
[2019-05-05] MEDS: ALUMINUM/MAGNES/SIMETH MAX STR 30 ML UDCUP PO PRN (03:13)
[2019-05-05] MEDS: VANCOMYCIN INJ 1,500 MG in SODIUM CHLORIDE 0.9% 500 ML IV SCH (03:13)
[2019-05-05] MEDS: HYDROmorphone 2 MG/1 ML VIAL IV PRN ×2 (05:00→13:19)
[2019-05-05] MEDS: VANCOMYCIN 50 MG/ML 60 ML/BOTTLE PO SCH ×3 (05:01→19:10)
[2019-05-05 05:39] LABS: Basophils % 1.4 % (0.0-0.8); Eosinophils % 1.4 % (0.00-10.9); Hematocrit 32.2 VOL% (42.0-52.0); Immature Granulocytes Absolute 0.07 #; Lymphocytes # 0.1 10*3/uL (1.4-4.0); Lymphocytes % 8.6 % (21.2-54.2); Mean Corpuscular HGB Conc 33.2 GM/DL (32-36); Mean Corpuscular Volume 93.3 FL (87-102); Monocytes % 32.9 % (1.7-12.7); Neutrophils % 45.7 % (38.7-73.9); Red Cell Distribution Width 15.6 % (9.3-17.3)
[2019-05-05 05:55] LABS: Platelet Count 14 T/CUMM (130-400); Red Blood Count 3.45 MC/CUMM (3.8-5.5); White Blood Count 0.7 T/CUMM (4-12)
[2019-05-05 05:56] LABS: Hemoglobin 10.7 GM/DL (14.0-18.0)
[2019-05-05 06:02] LABS: Hypochromasia 1+; Lymphocytes 10 % (20-55); Ovalocytes Slight; Platelet Estimate Decreased; Segmented Neutrophils 50 % (50-85); Total Cells Counted 100
[2019-05-05 06:22] LABS: Albumin 2.3 G/DL (3.4-5.0); Bilirubin,Total 2.2 MG/DL (0.2-1.0); Calcium 8.6 MG/DL (8.5-10.1); Total Protein 6.8 G/DL (6.4-8.3)
[2019-05-05] MEDS ORDERED: SODIUM CHLORIDE 0.9% 1,000 ML IV PRN ×2 (07:01→10:25)
[2019-05-05] MEDS: ALBUTEROL 0.63 MG/3 ML NEB RESP TX PRN ×2 (07:31→13:35)
[2019-05-05] MEDS: FOLIC ACID 0.4 MG TABLET PO SCH (08:17)
[2019-05-05] MEDS: ACYCLOVIR 200 MG CAPSULE PO SCH ×2 (08:17→13:19)
[2019-05-05] MEDS: CARVEDILOL 6.25 MG TABLET PO SCH ×2 (08:17→21:23)
[2019-05-05] MEDS: GABAPENTIN 100 MG CAPSULE PO SCH ×3 (08:17→21:23)
[2019-05-05] MEDS: ONDANSETRON 4 MG/2 ML VIAL IV PRN (08:18)
[2019-05-05] MEDS: oxyCODONE/ACETAMINOPHEN 5-325 MG TABLET PO PRN (08:18)
[2019-05-05] MEDS: DOCUSATE SODIUM 100 MG CAPSULE PO SCH (08:43)
[2019-05-05] MEDS: FILGRASTIM-SNDZ 300 MCG/0.5 ML SYRINGE SUBCUT SCH (13:16)
[2019-05-05] MEDS: MORPHINE IR 15 MG TABLET PO SCH ×2 (13:17→21:27)
[2019-05-05] MEDS: SUCRALFATE 1 GM/10 ML UDCUP PO SCH ×3 (14:22→21:27)
[2019-05-05] MEDS ORDERED: AMPICILLIN INJ 2,000 MG in SODIUM CHLORIDE 0.9% 100 ML IV SCH (14:30)
[2019-05-05] MEDS: AMPICILLIN INJ 2,000 MG in SODIUM CHLORIDE 0.9% 100 ML IV SCH ×2 (17:38→22:54)
[2019-05-05] MEDS: ACYCLOVIR INJ 750 MG in SODIUM CHLORIDE 0.9% 250 ML IV SCH (19:10)
[2019-05-05] MEDS: LUBIPROSTONE 8 MCG CAPSULE PO SCH (21:23)
[2019-05-06] MEDS: VANCOMYCIN 50 MG/ML 60 ML/BOTTLE PO SCH ×4 (00:51→18:31)
[2019-05-06] MEDS: VANCOMYCIN INJ 1,500 MG in SODIUM CHLORIDE 0.9% 500 ML IV SCH ×2 (00:51→17:05)
[2019-05-06] MEDS: ACYCLOVIR INJ 750 MG in SODIUM CHLORIDE 0.9% 250 ML IV SCH (04:05)
[2019-05-06 04:59] LABS: Basophils % 0.3 % (0.0-0.8); Eosinophils % 0.3 % (0.00-10.9); Hematocrit 24.9 VOL% (42.0-52.0); Immature Granulocytes % 7.8 %; Immature Granulocytes Absolute 0.23 #; Lymphocytes # 0.1 10*3/uL (1.4-4.0); Lymphocytes % 4.8 % (21.2-54.2); Mean Corpuscular HGB Conc 32.5 GM/DL (32-36); Mean Platelet Volume 10.9 FL (9.6-12.0); Monocytes % 26.3 % (1.7-12.7); Neutrophils % 60.5 % (38.7-73.9); Red Cell Distribution Width 15.8 % (9.3-17.3)
[2019-05-06] MEDS: MEROPENEM 1,000 MG in SODIUM CHLORIDE 0.9% 100 ML IV SCH ×3 (05:06→22:54)
[2019-05-06 05:22] LABS: Hemoglobin 8.1 GM/DL (14.0-18.0); Platelet Count 33 T/CUMM (130-400); Red Blood Count 2.62 MC/CUMM (3.8-5.5); White Blood Count 2.9 T/CUMM (4-12)
[2019-05-06 05:31] LABS: Albumin 2.1 G/DL (3.4-5.0); Bilirubin,Total 1.4 MG/DL (0.2-1.0); Calcium 8.6 MG/DL (8.5-10.1); Osmolality,Calculated 280.5 MOS/KG (273-304); Total Protein 6.4 G/DL (6.4-8.3)
[2019-05-06] MEDS: MORPHINE IR 15 MG TABLET PO SCH ×3 (05:48→22:55)
[2019-05-06] MEDS: AMPICILLIN INJ 2,000 MG in SODIUM CHLORIDE 0.9% 100 ML IV SCH ×3 (05:49→20:07)
[2019-05-06] MEDS: GABAPENTIN 100 MG CAPSULE PO SCH ×3 (05:49→22:55)
[2019-05-06 06:01] LABS: Eosinophils 1 % (0-10); Lymphocytes 8 % (20-55); Segmented Neutrophils 74 % (50-85); Total Cells Counted 100
[2019-05-06 06:02] LABS: Hypochromasia 1+; Microcytosis 1+; Platelet Estimate Decreased; Polychromasia Slight
[2019-05-06] MEDS: SUCRALFATE 1 GM/10 ML UDCUP PO SCH ×4 (08:47→23:09)
[2019-05-06] MEDS: FILGRASTIM-SNDZ 300 MCG/0.5 ML SYRINGE SUBCUT SCH (08:47)
[2019-05-06] MEDS: FOLIC ACID 0.4 MG TABLET PO SCH (08:48)
[2019-05-06] MEDS: CARVEDILOL 6.25 MG TABLET PO SCH ×2 (08:48→22:56)
[2019-05-06] MEDS: fentaNYL 12 MCG/HR PATCH TRANSDERM SCH (08:48)
[2019-05-06] MEDS: LUBIPROSTONE 8 MCG CAPSULE PO SCH ×2 (10:03→22:56)
[2019-05-06] MEDS: HYDROmorphone 2 MG/1 ML VIAL IV PRN (17:22)
[2019-05-06] MEDS: SODIUM CHLORIDE 0.9% 1,000 ML IV SCH (18:29)
[2019-05-07] MEDS: ALBUTEROL 0.63 MG/3 ML NEB RESP TX PRN ×4 (00:10→19:52)
[2019-05-07] MEDS: VANCOMYCIN 50 MG/ML 60 ML/BOTTLE PO SCH ×5 (00:26→23:24)
[2019-05-07] MEDS: AMPICILLIN INJ 2,000 MG in SODIUM CHLORIDE 0.9% 100 ML IV SCH (02:39)
[2019-05-07] MEDS: HYDROmorphone 2 MG/1 ML VIAL IV PRN ×3 (02:47→23:24)
[2019-05-07 04:37] LABS: Basophils % 0.3 % (0.0-0.8); Hematocrit 25.9 VOL% (42.0-52.0); Hemoglobin 8.6 GM/DL (14.0-18.0); Immature Granulocytes Absolute 0.74 #; Lymphocytes # 0.2 10*3/uL (1.4-4.0); Lymphocytes % 2.4 % (21.2-54.2); Mean Corpuscular HGB Conc 33.2 GM/DL (32-36); Mean Corpuscular Volume 94.2 FL (87-102); Mean Platelet Volume 12.4 FL (9.6-12.0); Monocytes % 25.5 % (1.7-12.7); Neutrophils % 60.8 % (38.7-73.9); Red Blood Count 2.75 MC/CUMM (3.8-5.5); Red Cell Distribution Width 15.5 % (9.3-17.3); White Blood Count 6.7 T/CUMM (4-12)
[2019-05-07 04:41] LABS: Platelet Count 32 T/CUMM (130-400)
[2019-05-07 04:59] LABS: Bilirubin,Total 1.9 MG/DL (0.2-1.0); Osmolality,Calculated 286.1 MOS/KG (273-304); Total Protein 6.5 G/DL (6.4-8.3)
[2019-05-07 05:25] LABS: Band Neutrophils 5 % (0-10); Lymphocytes 2 % (20-55); Metamyelocytes 1 %; Platelet Estimate Decreased; Segmented Neutrophils 61 % (50-85); Total Cells Counted 100
[2019-05-07] MEDS: MEROPENEM 1,000 MG in SODIUM CHLORIDE 0.9% 100 ML IV SCH ×3 (05:46→21:27)
[2019-05-07] MEDS: MORPHINE IR 15 MG TABLET PO SCH (05:47)
[2019-05-07] MEDS: GABAPENTIN 100 MG CAPSULE PO SCH ×3 (05:47→21:28)
[2019-05-07] MEDS: POTASSIUM CHLORIDE 20 MEQ TABLET PO PRN ×3 (07:16→13:31)
[2019-05-07] MEDS: SUCRALFATE 1 GM/10 ML UDCUP PO SCH ×4 (07:16→21:28)
[2019-05-07] MEDS: FOLIC ACID 0.4 MG TABLET PO SCH (08:49)
[2019-05-07] MEDS: LUBIPROSTONE 8 MCG CAPSULE PO SCH ×2 (08:50→21:28)
[2019-05-07] MEDS: CARVEDILOL 6.25 MG TABLET PO SCH ×2 (08:50→21:28)
[2019-05-07] MEDS: VORICONAZOLE INJ 400 MG in SODIUM CHLORIDE 0.9% 100 ML IV SCH ×2 (11:45→22:14)
[2019-05-07] MEDS ORDERED: FUROSEMIDE 40 MG/4 ML VIAL IV ONE (14:44)
[2019-05-07] MEDS: SODIUM CHLORIDE 0.9% 1,000 ML IV SCH (15:42)
[2019-05-07] MEDS ORDERED: VANCOMYCIN INJ 1,500 MG in SODIUM CHLORIDE 0.9% 500 ML IV SCH (17:00)
[2019-05-07] MEDS ORDERED: POTASSIUM CHLORIDE 20 MEQ/15 ML UDCUP PO ONE (19:49)
[2019-05-07 22:01] LABS: Barbiturates Screen,Urine Positive (Negative); Benzodiazepines Screen,Urine Negative (Negative); Cannabinoid Screen,Urine Negative (Negative); Opiate Screen,Urine Positive (Negative); Phencyclidine Screen,Urine Negative (Negative)
[2019-05-08] MEDS: ALBUTEROL 0.63 MG/3 ML NEB RESP TX PRN ×4 (00:07→19:40)
[2019-05-08 05:23] LABS: Calcium 8.6 MG/DL (8.5-10.1); Osmolality,Calculated 286.1 MOS/KG (273-304)
[2019-05-08] MEDS: GABAPENTIN 100 MG CAPSULE PO SCH ×3 (05:24→21:53)
[2019-05-08] MEDS: MEROPENEM 1,000 MG in SODIUM CHLORIDE 0.9% 100 ML IV SCH ×3 (05:24→21:47)
[2019-05-08] MEDS: VANCOMYCIN 50 MG/ML 60 ML/BOTTLE PO SCH ×4 (06:16→23:44)
[2019-05-08 07:58] LABS: Basophils % 0.1 % (0.0-0.8); Hematocrit 25.6 VOL% (42.0-52.0); Hemoglobin 8.4 GM/DL (14.0-18.0); Immature Granulocytes % 2.3 %; Immature Granulocytes Absolute 0.16 #; Lymphocytes # 0.3 10*3/uL (1.4-4.0); Lymphocytes % 3.7 % (21.2-54.2); Mean Corpuscular HGB Conc 32.8 GM/DL (32-36); Mean Corpuscular Volume 94.1 FL (87-102); Mean Platelet Volume 11.8 FL (9.6-12.0); Monocytes % 29.8 % (1.7-12.7); NRBC # 0.02 10*3/uL; Neutrophils % 64.1 % (38.7-73.9); Red Blood Count 2.72 MC/CUMM (3.8-5.5); Red Cell Distribution Width 16.1 % (9.3-17.3)
[2019-05-08 08:05] LABS: Platelet Count 31 T/CUMM (130-400)
[2019-05-08 08:16] LABS: Hypochromasia 1+; Lymphocytes 4 % (20-55); Platelet Estimate Decreased; Segmented Neutrophils 61 % (50-85); Total Cells Counted 100
[2019-05-08] MEDS: HYDROmorphone 2 MG/1 ML VIAL IV PRN ×2 (10:27→23:39)
[2019-05-08] MEDS: SUCRALFATE 1 GM/10 ML UDCUP PO SCH ×4 (10:28→21:51)
[2019-05-08] MEDS: VORICONAZOLE INJ 400 MG in SODIUM CHLORIDE 0.9% 100 ML IV SCH ×2 (10:29→23:41)
[2019-05-08] MEDS: FOLIC ACID 0.4 MG TABLET PO SCH (10:29)
[2019-05-08] MEDS: LUBIPROSTONE 8 MCG CAPSULE PO SCH ×2 (10:29→21:50)
[2019-05-08] MEDS: CARVEDILOL 6.25 MG TABLET PO SCH ×2 (10:29→21:50)
[2019-05-09] MEDS: ALBUTEROL 0.63 MG/3 ML NEB RESP TX PRN ×4 (00:16→20:10)
[2019-05-09 04:39] LABS: Hematocrit 24.6 VOL% (42.0-52.0); Hemoglobin 8.1 GM/DL (14.0-18.0); Immature Granulocytes % 2.4 %; Immature Granulocytes Absolute 0.13 #; Lymphocytes # 0.3 10*3/uL (1.4-4.0); Lymphocytes % 4.8 % (21.2-54.2); Mean Corpuscular HGB Conc 32.9 GM/DL (32-36); Mean Corpuscular Volume 94.6 FL (87-102); Mean Platelet Volume 12.6 FL (9.6-12.0); Monocytes % 25.8 % (1.7-12.7); Red Cell Distribution Width 16.3 % (9.3-17.3); White Blood Count 5.5 T/CUMM (4-12)
[2019-05-09] MEDS: MEROPENEM 1,000 MG in SODIUM CHLORIDE 0.9% 100 ML IV SCH ×3 (04:40→20:31)
[2019-05-09 04:45] LABS: Platelet Count 31 T/CUMM (130-400)
[2019-05-09 05:15] LABS: Lymphocytes 4 % (20-55); Segmented Neutrophils 78 % (50-85); Total Cells Counted 100
[2019-05-09 05:16] LABS: Hypochromasia 1+; Platelet Estimate Decreased
[2019-05-09] MEDS: GABAPENTIN 100 MG CAPSULE PO SCH ×3 (05:50→21:14)
[2019-05-09] MEDS: VANCOMYCIN 50 MG/ML 60 ML/BOTTLE PO SCH ×4 (05:50→23:04)
[2019-05-09] MEDS: SUCRALFATE 1 GM/10 ML UDCUP PO SCH ×4 (07:32→20:35)
[2019-05-09] MEDS: LUBIPROSTONE 8 MCG CAPSULE PO SCH ×2 (09:19→20:35)
[2019-05-09] MEDS: FOLIC ACID 0.4 MG TABLET PO SCH (09:19)
[2019-05-09] MEDS: CARVEDILOL 6.25 MG TABLET PO SCH ×2 (09:20→20:31)
[2019-05-09] MEDS: fentaNYL 12 MCG/HR PATCH TRANSDERM SCH (09:20)
[2019-05-09] MEDS: VORICONAZOLE INJ 400 MG in SODIUM CHLORIDE 0.9% 100 ML IV SCH ×2 (11:19→21:08)
[2019-05-09] MEDS: HYDROmorphone 2 MG/1 ML VIAL IV PRN ×3 (13:49→23:08)
[2019-05-10] MEDS: ALBUTEROL 0.63 MG/3 ML NEB RESP TX PRN ×4 (01:32→19:19)
[2019-05-10 04:15] LABS: Basophils % 0.2 % (0.0-0.8); Hematocrit 25.3 VOL% (42.0-52.0); Hemoglobin 8.6 GM/DL (14.0-18.0); Immature Granulocytes % 1.4 %; Immature Granulocytes Absolute 0.07 #; Lymphocytes # 0.4 10*3/uL (1.4-4.0); Lymphocytes % 8.5 % (21.2-54.2); Mean Corpuscular Volume 92.3 FL (87-102); Mean Platelet Volume 13.8 FL (9.6-12.0); Monocytes % 27.5 % (1.7-12.7); Neutrophils % 62.4 % (38.7-73.9); Red Blood Count 2.74 MC/CUMM (3.8-5.5); Red Cell Distribution Width 16.4 % (9.3-17.3); White Blood Count 4.8 T/CUMM (4-12)
[2019-05-10 04:17] LABS: Platelet Count 36 T/CUMM (130-400)
[2019-05-10] MEDS: HYDROmorphone 2 MG/1 ML VIAL IV PRN ×4 (04:29→18:04)
[2019-05-10 04:37] LABS: Albumin 1.8 G/DL (3.4-5.0); Bilirubin,Total 0.7 MG/DL (0.2-1.0); Calcium 8.5 MG/DL (8.5-10.1); Total Protein 6.1 G/DL (6.4-8.3)
[2019-05-10 05:08] LABS: Eosinophils 1 % (0-10); Hypochromasia Slight; Lymphocytes 6 % (20-55); Segmented Neutrophils 69 % (50-85); Total Cells Counted 100
[2019-05-10 05:09] LABS: Microcytosis Slight; Platelet Estimate Decreased; Stomatocytes Slight; Target Cells Slight; Tear Drop Cells Few
[2019-05-10] MEDS: POTASSIUM CHLORIDE 20 MEQ TABLET PO PRN ×4 (05:29→21:55)
[2019-05-10] MEDS: GABAPENTIN 100 MG CAPSULE PO SCH ×3 (05:29→21:04)
[2019-05-10] MEDS: VANCOMYCIN 50 MG/ML 60 ML/BOTTLE PO SCH ×3 (05:30→18:06)
[2019-05-10] MEDS: MEROPENEM 1,000 MG in SODIUM CHLORIDE 0.9% 100 ML IV SCH (05:36)
[2019-05-10] MEDS: FOLIC ACID 0.4 MG TABLET PO SCH (08:33)
[2019-05-10] MEDS: SUCRALFATE 1 GM/10 ML UDCUP PO SCH ×4 (08:34→21:05)
[2019-05-10] MEDS: CARVEDILOL 6.25 MG TABLET PO SCH ×2 (08:34→21:04)
[2019-05-10] MEDS: LUBIPROSTONE 8 MCG CAPSULE PO SCH ×2 (08:35→21:04)
[2019-05-10] MEDS ORDERED: POTASSIUM CHLORIDE 20 MEQ TABLET PO ONE (08:37)
[2019-05-10] MEDS ORDERED: guaiFENesin/DM ER 600-30 MG TABLET PO PRN (09:07)
[2019-05-10] MEDS: VORICONAZOLE INJ 400 MG in SODIUM CHLORIDE 0.9% 100 ML IV SCH ×2 (10:36→21:05)
[2019-05-10] MEDS ORDERED: MAGNESIUM SULF RIDER 2 GM in PREMIX 1 EACH IV ONE ×2 (11:57→12:42)
[2019-05-10] MEDS: NAFCILLIN 1,000 MG in SODIUM CHLORIDE 0.9% 100 ML IV SCH ×2 (12:55→18:02)
[2019-05-11] MEDS: HYDROmorphone 2 MG/1 ML VIAL IV PRN (00:10)
[2019-05-11] MEDS: POTASSIUM CHLORIDE 20 MEQ TABLET PO PRN ×2 (00:11→02:14)
[2019-05-11] MEDS: VANCOMYCIN 50 MG/ML 60 ML/BOTTLE PO SCH ×5 (00:12→23:15)
[2019-05-11] MEDS: NAFCILLIN 1,000 MG in SODIUM CHLORIDE 0.9% 100 ML IV SCH ×4 (01:30→19:20)
[2019-05-11] MEDS: GABAPENTIN 100 MG CAPSULE PO SCH ×3 (05:41→21:18)
[2019-05-11] MEDS: MORPHINE IR 15 MG TABLET PO PRN (05:45)
[2019-05-11 06:14] LABS: Hematocrit 23.3 VOL% (42.0-52.0); Hemoglobin 7.7 GM/DL (14.0-18.0); Immature Granulocytes % 1.8 %; Immature Granulocytes Absolute 0.09 #; Lymphocytes # 0.4 10*3/uL (1.4-4.0); Lymphocytes % 8.2 % (21.2-54.2); Mean Corpuscular Volume 92.8 FL (87-102); Mean Platelet Volume 13.8 FL (9.6-12.0); Platelet Count 40 T/CUMM (130-400); Red Blood Count 2.51 MC/CUMM (3.8-5.5); Red Cell Distribution Width 16.9 % (9.3-17.3); White Blood Count 5.1 T/CUMM (4-12)
[2019-05-11 06:42] LABS: Calcium 8.7 MG/DL (8.5-10.1)
[2019-05-11 06:48] LABS: Anisocytosis 2+; Giant Platelets Few; Lymphocytes 3 % (20-55); Platelet Estimate Decreased; Segmented Neutrophils 79 % (50-85); Total Cells Counted 100
[2019-05-11 06:49] LABS: Hypersegmented Neutrophil SLIGHT; Macrocytosis 1+; Target Cells Few
[2019-05-11] MEDS ORDERED: POTASSIUM CHLORIDE 20 MEQ/15 ML UDCUP PO ONE (07:14)
[2019-05-11] MEDS ORDERED: MAGNESIUM SULF RIDER 2 GM in PREMIX 1 EACH IV ONE (07:14)
[2019-05-11] MEDS ORDERED: FUROSEMIDE 40 MG/4 ML VIAL IV ONE (07:15)
[2019-05-11] MEDS ORDERED: SODIUM CHLORIDE 0.9% 1,000 ML IV PRN ×2 (07:16→14:43)
[2019-05-11] MEDS: ALBUTEROL 0.63 MG/3 ML NEB RESP TX PRN ×3 (07:28→19:24)
[2019-05-11] MEDS: FOLIC ACID 0.4 MG TABLET PO SCH (08:33)
[2019-05-11] MEDS: LUBIPROSTONE 8 MCG CAPSULE PO SCH ×2 (08:33→20:22)
[2019-05-11] MEDS: CARVEDILOL 6.25 MG TABLET PO SCH ×2 (08:33→20:21)
[2019-05-11] MEDS: SUCRALFATE 1 GM/10 ML UDCUP PO SCH ×4 (08:34→20:23)
[2019-05-11] MEDS: ALUMINUM/MAGNES/SIMETH MAX STR 30 ML UDCUP PO PRN (08:40)
[2019-05-11] MEDS: MORPHINE 4 MG/1 ML VIAL IV PRN ×3 (13:17→21:45)
[2019-05-11] MEDS: VORICONAZOLE INJ 400 MG in SODIUM CHLORIDE 0.9% 100 ML IV SCH ×2 (13:21→21:19)
[2019-05-11 15:01] LABS: TB2 Ag Minus Result 0.01 IU/mL
[2019-05-11] MEDS: FUROSEMIDE 20 MG/2 ML VIAL IV SCH (16:30)
[2019-05-12] MEDS: NAFCILLIN 1,000 MG in SODIUM CHLORIDE 0.9% 100 ML IV SCH ×4 (01:16→21:21)
[2019-05-12] MEDS: ALBUTEROL 0.63 MG/3 ML NEB RESP TX PRN ×4 (02:20→18:55)
[2019-05-12 03:23] LABS: Basophils % 0.2 % (0.0-0.8); Hematocrit 24.7 VOL% (42.0-52.0); Hemoglobin 8.1 GM/DL (14.0-18.0); Immature Granulocytes % 0.9 %; Immature Granulocytes Absolute 0.05 #; Lymphocytes # 0.6 10*3/uL (1.4-4.0); Lymphocytes % 11.5 % (21.2-54.2); Mean Corpuscular HGB Conc 32.8 GM/DL (32-36); Mean Corpuscular Volume 93.2 FL (87-102); Monocytes % 18.1 % (1.7-12.7); Neutrophils % 69.3 % (38.7-73.9); Platelet Count 53 T/CUMM (130-400); Red Blood Count 2.65 MC/CUMM (3.8-5.5); Red Cell Distribution Width 17.4 % (9.3-17.3); White Blood Count 5.3 T/CUMM (4-12)
[2019-05-12 03:36] LABS: Calcium 8.8 MG/DL (8.5-10.1); Osmolality,Calculated 281.5 MOS/KG (273-304)
[2019-05-12 04:01] LABS: Band Neutrophils 4 % (0-10); Lymphocytes 7 % (20-55); Segmented Neutrophils 73 % (50-85); Total Cells Counted 100
[2019-05-12 04:02] LABS: Anisocytosis 1+; Hypochromasia 1+; Platelet Estimate Decreased; Tear Drop Cells Few
[2019-05-12] MEDS: MORPHINE IR 15 MG TABLET PO PRN ×3 (04:42→21:15)
[2019-05-12] MEDS: VANCOMYCIN 50 MG/ML 60 ML/BOTTLE PO SCH ×3 (06:02→18:03)
[2019-05-12] MEDS: GABAPENTIN 100 MG CAPSULE PO SCH ×3 (06:02→22:30)
[2019-05-12] MEDS: VORICONAZOLE INJ 400 MG in SODIUM CHLORIDE 0.9% 100 ML IV SCH ×2 (09:47→22:30)
[2019-05-12] MEDS: LUBIPROSTONE 8 MCG CAPSULE PO SCH ×3 (09:48→21:15)
[2019-05-12] MEDS: SUCRALFATE 1 GM/10 ML UDCUP PO SCH ×4 (09:48→21:15)
[2019-05-12] MEDS: FUROSEMIDE 20 MG/2 ML VIAL IV SCH ×2 (09:48→16:20)
[2019-05-12] MEDS: FOLIC ACID 0.4 MG TABLET PO SCH (09:48)
[2019-05-12] MEDS: fentaNYL 12 MCG/HR PATCH TRANSDERM SCH (09:49)
[2019-05-12] MEDS: POTASSIUM CHLORIDE 20 MEQ/15 ML UDCUP PO SCH (09:49)
[2019-05-12] MEDS: CARVEDILOL 6.25 MG TABLET PO SCH ×2 (09:49→21:16)
[2019-05-12] MEDS: MORPHINE 4 MG/1 ML VIAL IV PRN (15:37)
[2019-05-12] MEDS ORDERED: ACETAMINOPHEN 325 MG TABLET PO PRN (16:05)
[2019-05-12] MEDS ORDERED: IBUPROFEN 400 MG TABLET PO PRN (17:42)
[2019-05-12 18:16] LABS: Amorphous Crystals,Urine Occasional /HPF (Few); Apearance,Urine Slightly Hazy (Clear); Bilirubin,Urine Negative (Negative); Blood, Urine Small mg/dL (Negative); Glucose,Urine (UA) Negative (Negative); Hyaline Casts,Urine 1 /LPF (0-3); Ketones,Urine Negative (Negative); Nitrite,Urine Negative (Negative); Protein,Urine Negative; Squamous Epithelial Cell,Urine Occasional /HPF (0-10); Urine Color Yellow (Yellow); Urine Specific Gravity 1.008 (1.001-1.035); Urine Urobilinogen < 2.0 EU/DL (0.2-1.0); WBC,Urine 2 /HPF (0-6)
[2019-05-13] MEDS: NAFCILLIN 1,000 MG in SODIUM CHLORIDE 0.9% 100 ML IV SCH ×4 (01:08→18:38)
[2019-05-13] MEDS: VANCOMYCIN 50 MG/ML 60 ML/BOTTLE PO SCH ×4 (01:09→17:18)
[2019-05-13] MEDS: ALBUTEROL 0.63 MG/3 ML NEB RESP TX PRN ×4 (01:30→19:24)
[2019-05-13] MEDS: MORPHINE IR 15 MG TABLET PO PRN ×2 (05:12→22:36)
[2019-05-13] MEDS: GABAPENTIN 100 MG CAPSULE PO SCH ×3 (06:09→21:11)
[2019-05-13] MEDS ORDERED: SODIUM CHLORIDE 0.9% 1,000 ML IV ONE (08:02)
[2019-05-13 08:04] LABS: Basophils % 0.2 % (0.0-0.8); Hematocrit 29.4 VOL% (42.0-52.0); Immature Granulocytes % 1.2 %; Immature Granulocytes Absolute 0.06 #; Lymphocytes # 0.5 10*3/uL (1.4-4.0); Mean Corpuscular HGB Conc 33.3 GM/DL (32-36); Mean Corpuscular Volume 93.6 FL (87-102); Mean Platelet Volume 13.9 FL (9.6-12.0); Monocytes % 13.5 % (1.7-12.7); Neutrophils % 75.1 % (38.7-73.9); Red Blood Count 3.14 MC/CUMM (3.8-5.5); Red Cell Distribution Width 17.2 % (9.3-17.3); White Blood Count 5.1 T/CUMM (4-12)
[2019-05-13 08:06] LABS: Hemoglobin 9.8 GM/DL (14.0-18.0); Platelet Count 54 T/CUMM (130-400)
[2019-05-13 08:20] LABS: Hypochromasia 1+; Platelet Estimate Decreased
[2019-05-13 08:34] LABS: Osmolality,Calculated 287.3 MOS/KG (273-304)
[2019-05-13] MEDS: FUROSEMIDE 20 MG/2 ML VIAL IV SCH (08:40)
[2019-05-13] MEDS: SUCRALFATE 1 GM/10 ML UDCUP PO SCH ×4 (08:57→21:11)
[2019-05-13] MEDS: CARVEDILOL 6.25 MG TABLET PO SCH ×2 (08:57→21:11)
[2019-05-13] MEDS: POTASSIUM CHLORIDE 20 MEQ/15 ML UDCUP PO SCH (08:57)
[2019-05-13] MEDS: FOLIC ACID 0.4 MG TABLET PO SCH (08:57)
[2019-05-13] MEDS: LUBIPROSTONE 8 MCG CAPSULE PO SCH ×2 (09:04→21:11)
[2019-05-14] MEDS: VANCOMYCIN 50 MG/ML 60 ML/BOTTLE PO SCH ×4 (00:27→18:36)
[2019-05-14] MEDS: NAFCILLIN 1,000 MG in SODIUM CHLORIDE 0.9% 100 ML IV SCH ×4 (00:30→18:42)
[2019-05-14] MEDS: ALBUTEROL 0.63 MG/3 ML NEB RESP TX PRN (00:50)
[2019-05-14 04:42] LABS: Basophils % 0.4 % (0.0-0.8); Hematocrit 28.4 VOL% (42.0-52.0); Hemoglobin 9.4 GM/DL (14.0-18.0); Immature Granulocytes % 0.8 %; Immature Granulocytes Absolute 0.04 #; Lymphocytes # 0.7 10*3/uL (1.4-4.0); Lymphocytes % 14.4 % (21.2-54.2); Mean Corpuscular HGB Conc 33.1 GM/DL (32-36); Mean Corpuscular Volume 93.1 FL (87-102); Mean Platelet Volume 13.6 FL (9.6-12.0); Monocytes % 10.5 % (1.7-12.7); Neutrophils % 73.9 % (38.7-73.9); Platelet Count 72 T/CUMM (130-400); Red Blood Count 3.05 MC/CUMM (3.8-5.5); Red Cell Distribution Width 17.9 % (9.3-17.3); White Blood Count 5.1 T/CUMM (4-12)
[2019-05-14 05:10] LABS: Calcium 8.5 MG/DL (8.5-10.1); Hypochromasia 1+; Osmolality,Calculated 284.4 MOS/KG (273-304); Platelet Estimate Decreased
[2019-05-14] MEDS: GABAPENTIN 100 MG CAPSULE PO SCH ×3 (05:44→20:59)
[2019-05-14] MEDS: MORPHINE IR 15 MG TABLET PO PRN ×2 (06:37→16:29)
[2019-05-14] MEDS ORDERED: LEVOFLOXACIN INJ 500 MG in PREMIX 1 EACH IV ONE (08:00)
[2019-05-14] MEDS: POTASSIUM CHLORIDE 20 MEQ TABLET PO PRN ×2 (09:47→18:36)
[2019-05-14] MEDS: FOLIC ACID 0.4 MG TABLET PO SCH (09:47)
[2019-05-14] MEDS: CARVEDILOL 6.25 MG TABLET PO SCH ×2 (09:47→20:59)
[2019-05-14] MEDS: POTASSIUM CHLORIDE 20 MEQ/15 ML UDCUP PO SCH (09:48)
[2019-05-14] MEDS: SUCRALFATE 1 GM/10 ML UDCUP PO SCH ×4 (09:48→20:59)
[2019-05-14] MEDS: LUBIPROSTONE 8 MCG CAPSULE PO SCH ×2 (09:48→22:59)
[2019-05-14] MEDS: ALBUTEROL/IPRATROPIUM 3 ML NEB RESP TX SCH ×2 (13:40→20:16)
[2019-05-14] MEDS: MORPHINE 4 MG/1 ML VIAL IV PRN ×3 (13:59→22:24)
[2019-05-14] MEDS: FUROSEMIDE 40 MG/4 ML VIAL IV SCH (16:31)
[2019-05-14 23:30] LABS: CDT Result Negative (Negative); CDT Specimen Source STOOL
[2019-05-15] MEDS: ALBUTEROL/IPRATROPIUM 3 ML NEB RESP TX SCH ×4 (02:13→19:42)
[2019-05-15] MEDS: NAFCILLIN 1,000 MG in SODIUM CHLORIDE 0.9% 100 ML IV SCH ×4 (02:14→20:07)
[2019-05-15] MEDS ORDERED: MIDAZOLAM 2 MG/2 ML VIAL ONE (06:50)
[2019-05-15] MEDS ORDERED: MEPERIDINE 50 MG/1 ML VIAL IM ONE (07:00)
[2019-05-15] MEDS ORDERED: PROMETHAZINE 25 MG/1 ML VIAL IM ONE (07:00)
[2019-05-15] MEDS: GABAPENTIN 100 MG CAPSULE PO SCH ×3 (07:24→22:39)
[2019-05-15] MEDS ORDERED: LIDOCAINE 2% VISCOUS 100 ML BOTTLE SWISH/SPIT ONE (07:30)
[2019-05-15] MEDS ORDERED: LIDOCAINE 1% 20 ML VIAL MISC INJ ONE (07:30)
[2019-05-15] MEDS ORDERED: LIDOCAINE 2% 20 ML VIAL RESP TX ONE (07:30)
[2019-05-15] MEDS ORDERED: MIDAZOLAM 2 MG/2 ML VIAL IV ONE (07:30)
[2019-05-15] MEDS: SUCRALFATE 1 GM/10 ML UDCUP PO SCH ×4 (08:08→20:21)
[2019-05-15] MEDS: POTASSIUM CHLORIDE 20 MEQ/15 ML UDCUP PO SCH (08:53)
[2019-05-15] MEDS: fentaNYL 12 MCG/HR PATCH TRANSDERM SCH (08:53)
[2019-05-15] MEDS: LEVOFLOXACIN INJ 250 MG in PREMIX 1 EACH IV SCH (08:53)
[2019-05-15] MEDS: LUBIPROSTONE 8 MCG CAPSULE PO SCH ×3 (08:54→22:38)
[2019-05-15] MEDS: CARVEDILOL 6.25 MG TABLET PO SCH ×2 (08:54→20:21)
[2019-05-15] MEDS: FOLIC ACID 0.4 MG TABLET PO SCH (08:54)
[2019-05-15] MEDS: methylPREDNISolone SOD SUC 125 MG/2 ML VIAL IV SCH ×2 (09:23→20:16)
[2019-05-15 09:27] LABS: Osmolality,Calculated 281.5 MOS/KG (273-304)
[2019-05-15] MEDS: FUROSEMIDE 40 MG/4 ML VIAL IV SCH (09:36)
[2019-05-15] MEDS: POTASSIUM CHLORIDE 20 MEQ TABLET PO PRN ×4 (12:01→22:39)
[2019-05-16] MEDS: ALBUTEROL/IPRATROPIUM 3 ML NEB RESP TX SCH ×4 (00:05→18:53)
[2019-05-16] MEDS: POTASSIUM CHLORIDE 20 MEQ TABLET PO PRN (00:49)
[2019-05-16] MEDS: NAFCILLIN 1,000 MG in SODIUM CHLORIDE 0.9% 100 ML IV SCH ×4 (00:49→18:47)
[2019-05-16] MEDS: GABAPENTIN 100 MG CAPSULE PO SCH ×3 (05:10→22:23)
[2019-05-16 06:20] LABS: Hematocrit 27.8 VOL% (42.0-52.0); Hemoglobin 9.2 GM/DL (14.0-18.0); Immature Granulocytes % 0.9 %; Immature Granulocytes Absolute 0.06 #; Lymphocytes # 0.4 10*3/uL (1.4-4.0); Lymphocytes % 5.8 % (21.2-54.2); Mean Corpuscular HGB Conc 33.1 GM/DL (32-36); Mean Platelet Volume 12.7 FL (9.6-12.0); Monocytes % 12.9 % (1.7-12.7); Neutrophils % 80.4 % (38.7-73.9); Red Blood Count 2.99 MC/CUMM (3.8-5.5); Red Cell Distribution Width 17.3 % (9.3-17.3); White Blood Count 6.9 T/CUMM (4-12)
[2019-05-16 06:24] LABS: Platelet Count 95 T/CUMM (130-400)
[2019-05-16 06:38] LABS: Calcium 8.6 MG/DL (8.5-10.1); Osmolality,Calculated 285.5 MOS/KG (273-304)
[2019-05-16] MEDS: POTASSIUM CHLORIDE 20 MEQ/15 ML UDCUP PO SCH (09:58)
[2019-05-16] MEDS: LUBIPROSTONE 8 MCG CAPSULE PO SCH ×3 (09:58→21:02)
[2019-05-16] MEDS: CARVEDILOL 6.25 MG TABLET PO SCH ×2 (09:58→21:02)
[2019-05-16] MEDS: SUCRALFATE 1 GM/10 ML UDCUP PO SCH ×4 (09:58→21:02)
[2019-05-16] MEDS: FOLIC ACID 0.4 MG TABLET PO SCH (09:58)
[2019-05-16] MEDS: methylPREDNISolone SOD SUC 125 MG/2 ML VIAL IV SCH ×2 (09:58→21:02)
[2019-05-16] MEDS: LEVOFLOXACIN INJ 250 MG in PREMIX 1 EACH IV SCH (11:15)
[2019-05-17] MEDS: ALBUTEROL/IPRATROPIUM 3 ML NEB RESP TX SCH ×2 (00:41→07:00)
[2019-05-17] MEDS: NAFCILLIN 1,000 MG in SODIUM CHLORIDE 0.9% 100 ML IV SCH ×3 (01:01→13:12)
[2019-05-17 06:33] LABS: Basophils % 0.1 % (0.0-0.8); Hematocrit 28.5 VOL% (42.0-52.0); Hemoglobin 9.5 GM/DL (14.0-18.0); Immature Granulocytes % 0.9 %; Immature Granulocytes Absolute 0.06 #; Lymphocytes # 0.6 10*3/uL (1.4-4.0); Lymphocytes % 8.4 % (21.2-54.2); Mean Corpuscular HGB Conc 33.3 GM/DL (32-36); Mean Corpuscular Volume 92.8 FL (87-102); Mean Platelet Volume 13.1 FL (9.6-12.0); Monocytes % 10.5 % (1.7-12.7); Neutrophils % 80.1 % (38.7-73.9); Platelet Count 123 T/CUMM (130-400); Red Blood Count 3.07 MC/CUMM (3.8-5.5); Red Cell Distribution Width 17.7 % (9.3-17.3); White Blood Count 6.7 T/CUMM (4-12)
[2019-05-17] MEDS: GABAPENTIN 100 MG CAPSULE PO SCH (06:46)
[2019-05-17 07:10] LABS: Calcium 8.2 MG/DL (8.5-10.1)
[2019-05-17] MEDS: methylPREDNISolone SOD SUC 125 MG/2 ML VIAL IV SCH (08:53)
[2019-05-17] MEDS: SUCRALFATE 1 GM/10 ML UDCUP PO SCH ×2 (08:53→11:22)
[2019-05-17] MEDS: POTASSIUM CHLORIDE 20 MEQ/15 ML UDCUP PO SCH (08:53)
[2019-05-17] MEDS: FOLIC ACID 0.4 MG TABLET PO SCH (08:54)
[2019-05-17] MEDS: LUBIPROSTONE 8 MCG CAPSULE PO SCH (08:54)
[2019-05-17] MEDS: CARVEDILOL 6.25 MG TABLET PO SCH (08:54)
[2019-05-17] MEDS: LEVOFLOXACIN INJ 250 MG in PREMIX 1 EACH IV SCH (08:55)
[2019-05-17] MEDS: POTASSIUM CHLORIDE 20 MEQ TABLET PO PRN (10:55)
[2019-05-17] MEDS ORDERED: amLODIPine 5 MG TABLET PO SCH (11:30)
[2019-05-17 11:42] VITALS: BP 174/105
[2019-05-17] MEDS ORDERED: POTASSIUM CHLORIDE 20 MEQ/15 ML UDCUP PO SCH (21:00)
== END 2019-05-17 14:15 | disposition home or self-care (01) | DRG 720 ==
LOC: N.ED 08:22 → N.EDINP 12:36 → SUATTDRO 12:36 → N.4E 13:01
PROVIDERS: ADMIT Internal Medicine; ATTEND Internal Medicine Geriatric Medicine